=== PATIENT | female | born 1945 | race Asian ===

== ENCOUNTER 2017-03-03 06:41 | Day surgery (SDC) | payer MEDICARE, OTHER ==
[~2017-03-03] VITALS: Ht 154.9 cm; Wt 54.4 kg
[2017-03-03 07:27] VITALS: BP 145/81
[2017-03-03 13:29] VITALS: BP 104/54
== END 2017-03-03 11:05 | disposition home or self-care (01) ==
LOC: GI 06:41 → OR 08:30 → GI 11:05
PROVIDERS: Internal Medicine
PROC: 0DBP8ZX Excision of Rectum, Via Natural or Artificial Opening Endoscopic, Diagnostic (ICD-10-PCS; principal; 2017-03-03 08:30)
DX: K51.20 Ulcerative (chronic) proctitis without complications (principal); K57.30 Diverticulosis of large intestine without perforation or abscess without bleeding; K62.5 Hemorrhage of anus and rectum; R19.7 Diarrhea, unspecified; K21.9 Gastro-esophageal reflux disease without esophagitis; E78.5 Hyperlipidemia, unspecified; Z68.23 Body mass index [BMI] 23.0-23.9, adult
CPT/HCPCS: 45378; J1200; J1610; J2250; J2310; J3010; J3490